=== PATIENT | female | born 1940 | race Caucasian/White ===

== ENCOUNTER → 2017-04-23 | Outpatient (CLI) | payer OTHER ==
[~2017-04-23] MED LIST: ALPR0.25 PO; ATOR20TA9 PO; LEVO25TA4 PO; OMEP20TA62 PO; TRAM50TA2 PO; [UNRECOGNIZED DRUG - REMARK]
== END | disposition home or self-care (01) ==
LOC: CFH 14:17 → EDSTATUS 14:45
PROVIDERS: ATTEND Family Medicine
DX: Z13.820 Encounter for screening for osteoporosis (principal); M81.0 Age-related osteoporosis without current pathological fracture
CPT/HCPCS: 77080

== ENCOUNTER 2017-07-21 20:18 | Emergency (ER) | payer OTHER ==
[~2017-07-21] VITALS: Ht 167.6 cm; Wt 61.3 kg
[2017-07-21 20:25] VITALS: BP 127/80
== END 2017-07-21 21:45 | disposition home or self-care (01) ==
LOC: ED 21:40
DX: M79.672 Pain in left foot (principal); K21.9 Gastro-esophageal reflux disease without esophagitis; J44.9 Chronic obstructive pulmonary disease, unspecified
CPT/HCPCS: 99284

== ENCOUNTER 2018-01-17 22:13 | Emergency (ER) | payer OTHER ==
[~2018-01-17] VITALS: Ht 167.6 cm; Wt 62.3 kg
[2018-01-17 22:18] VITALS: BP 143/82
[2018-01-17] MEDS ORDERED: THYROID MED PO (23:02)
[2018-01-17] MEDS ORDERED: PRILOSEC PO (23:02)
[2018-01-17] MEDS ORDERED: INHALER INH (23:02)
[2018-01-17] MEDS ORDERED: BP MED PO (23:02)
[2018-01-18] MEDS ORDERED: ACETAMINOPHEN 325 MG TABLET ONE (00:52)
[2018-01-18] MEDS ORDERED: ACETAMINOPHEN 325 MG TABLET PO ONE (01:00)
== END 2018-01-18 01:07 | disposition home or self-care (01) ==
LOC: ED 23:59
DX: S42.494A Other nondisplaced fracture of lower end of right humerus, initial encounter for closed fracture (principal); S81.001A Unspecified open wound, right knee, initial encounter; J44.9 Chronic obstructive pulmonary disease, unspecified; K21.9 Gastro-esophageal reflux disease without esophagitis; Z90.710 Acquired absence of both cervix and uterus; W18.30XA Fall on same level, unspecified, initial encounter; Y93.89 Activity, other specified; Y92.89 Other specified places as the place of occurrence of the external cause; Y99.8 Other external cause status
CPT/HCPCS: 29105; 99284

== ENCOUNTER 2018-07-25 05:51 | Emergency (ER) | payer OTHER ==
[~2018-07-25] VITALS: Ht 167.6 cm; Wt 61.1 kg
[~2018-07-25 05:51] MED LIST changes: +BP MED PO; +INHALER INH; +PRILOSEC PO; +THYROID MED PO
[2018-07-25 05:52] VITALS: BP 109/72
== END 2018-07-25 07:24 | disposition home or self-care (01) ==
LOC: ED 06:40
DX: J06.9 Acute upper respiratory infection, unspecified (principal); J44.9 Chronic obstructive pulmonary disease, unspecified; Z90.710 Acquired absence of both cervix and uterus
CPT/HCPCS: 71045; 99283

== ENCOUNTER 2019-01-28 14:11 | Inpatient (IN) | payer MEDICARE, OTHER ==
[~2019-01-28] VITALS: Ht 167.6 cm; Wt 60.9 kg
[~2019-01-28 14:11] MED LIST changes: +ATOR20TA37 PO; -ATOR20TA9 PO
[2019-01-28] MEDS ORDERED: ALBUTEROL/IPRATROPIUM 2.5MG/0.5MG, 3 ML NPPB SCH (14:30)
[2019-01-28 14:44] LABS: BASOPHILS # (AUTO) 0.03 x10^3/uL (0-0.1); BASOPHILS % (AUTO) 0 % (0-1); EOSINOPHILS # (AUTO) 0.11 x10^3/uL (0-0.4); EOSINOPHILS % (AUTO) 2 % (1-7); LYMPHOCYTES # (AUTO) 1.55 x10^3/uL (1-3.4); LYMPHOCYTES % (AUTO) 20 % (22-44); MD NO; MEAN CORPUSCULAR HEMOGLOBIN 29.3 pg (27.0-34.8); MEAN CORPUSCULAR HGB CONC 33.4 g/dL (32.4-35.8); MEAN CORPUSCULAR VOLUME 87.6 fL (80-100); MONOCYTES # (AUTO) 0.18 x10^3/uL (0.2-0.8); MONOCYTES % (AUTO) 2 % (2-9); NEUTROPHILS # (AUTO) 5.74 x10^3/uL (1.8-6.8); NEUTROPHILS % (AUTO) 76 % (42-75); PLATELET COUNT 475 x10^3/uL (130-400); RED BLOOD COUNT 5.17 x10^6/uL (3.82-5.3); RED CELL DISTRIBUTION WIDTH 13.9 % (9.6-15.2)
[2019-01-28 15:01] LABS: ALBUMIN 3.7 g/dL (3.4-5.0); ANION GAP 7 mmol/L (5-15); CALCIUM 9.2 mg/dL (8.5-10.1); CHLORIDE 107 mmol/L (98-107); CREATININE 1.19 mg/dL (0.55-1.02)
[2019-01-28 15:08] LABS: TROPONIN I < 0.015 ng/mL (0.000-0.045)
--- NOTE | 2019-01-28 18:50 | NUR ---
BREAK RN: PT PRESENTS TO ED FOR C/O WORSENING SOB X 1 WEEK. WAS PLACED ON PREDNISONE FOR 5 DAYS BY PCP. STATES LITTLE IMPROVEMENT. PT STATES AT HOME INHALER HAS DONE LITTLE TO HELP, TOO. PT WAS TOLD TO COME IN BY PCP FOR POSSIBLE IV STEROIDS. PT BREATHING SLIGHTLY LABORED WITH AN INCREASED. AUDIABLE WHEEZING NOTED. PT ON CONT. PULSE AND BP. PT SEEN IN PIT. RESULTS BACK. AWAITING FOR FURTHER EVAL AND ORDERS. WILL CONTINUE TO MONITOR.
--- NOTE | 2019-01-28 19:10 | NUR ---
BREAK RN: RT AT BEDSIDE.
--- NOTE | 2019-01-28 19:12 | NUR ---
REPORT TO NANCY NEWMAN.
[2019-01-28] MEDS ORDERED: PRED5TAB PO (21:13)
[2019-01-28] MEDS ORDERED: TIOT18CA INH (21:13)
[2019-01-28] MEDS ORDERED: OMEP-110 PO (21:13)
--- NOTE | 2019-01-28 21:38 | NUR ---
PIV PLACED FOR ADMISSION
--- NOTE | 2019-01-28 22:10 | NUR ---
REPORT TO BEENA CRUZ.
[2019-01-29] MEDS ORDERED: ALBUTEROL SULFATE 2.5 MG/3 ML NPPB PRN (00:30)
[2019-01-29 01:17] VITALS: BP_SYST 128; BP_SYST 160; BP_DIAS 75; BP_DIAS 88
[2019-01-29] MEDS ORDERED: POLYETHYLENE GLYCOL 17 GM PACKET PO PRN (01:30)
[2019-01-29] MEDS ORDERED: hydrALAzine 20 MG/ML, 1ML IVPush PRN (01:30)
[2019-01-29] MEDS: HEPARIN 5,000 UNITS/ML, 1ML SQ SCH ×2 (01:54→09:37)
[2019-01-29] MEDS: methylPREDNISolone SOD SUCC 40 MG/ML IVPush SCH ×3 (01:55→13:59)
[2019-01-29 02:23] LABS: BASOPHILS # (AUTO) 0.02 x10^3/uL (0-0.1); BASOPHILS % (AUTO) 0 % (0-1); EOSINOPHILS % (AUTO) 0 % (1-7); LYMPHOCYTES # (AUTO) 2.27 x10^3/uL (1-3.4); LYMPHOCYTES % (AUTO) 36 % (22-44); MD NO; MEAN CORPUSCULAR HEMOGLOBIN 29.5 pg (27.0-34.8); MEAN CORPUSCULAR HGB CONC 33.9 g/dL (32.4-35.8); MEAN CORPUSCULAR VOLUME 87.1 fL (80-100); MONOCYTES # (AUTO) 0.43 x10^3/uL (0.2-0.8); MONOCYTES % (AUTO) 7 % (2-9); NEUTROPHILS # (AUTO) 3.56 x10^3/uL (1.8-6.8); NEUTROPHILS % (AUTO) 57 % (42-75); PLATELET COUNT 423 x10^3/uL (130-400); RED BLOOD COUNT 4.55 x10^6/uL (3.82-5.3); RED CELL DISTRIBUTION WIDTH 13.8 % (9.6-15.2)
[2019-01-29 02:27] LABS: ANION GAP 8 mmol/L (5-15); CALCIUM 8.8 mg/dL (8.5-10.1); CHLORIDE 112 mmol/L (98-107); CREATININE 1.12 mg/dL (0.55-1.02)
[2019-01-29 07:52] VITALS: BP 130/78
[2019-01-29] MEDS ORDERED: AMLODIPINE 5 MG TABLET PO SCH (09:00)
[2019-01-29] MEDS ORDERED: OMEPRAZOLE 20 MG CAPSULE.DR PO SCH (09:00)
== END 2019-01-29 14:50 | disposition home or self-care (01) | DRG 189 ==
LOC: ED 20:58 → EDIP 21:19 → 4EST 22:32 → DCLOUNGE 01-29 14:34
PROVIDERS: ADMIT Family Medicine; ATTEND Family Medicine
DX: J96.00 Acute respiratory failure, unspecified whether with hypoxia or hypercapnia (principal); I10 Essential (primary) hypertension; J43.9 Emphysema, unspecified; K21.9 Gastro-esophageal reflux disease without esophagitis; Z85.528 Personal history of other malignant neoplasm of kidney; Z87.891 Personal history of nicotine dependence; Z90.5 Acquired absence of kidney; Z90.710 Acquired absence of both cervix and uterus
CPT/HCPCS: 36415; 71046; 80048; 82040; 83880; 84484; 85025; 93005; 94640; 99285; G0378; J1644; J2920

== ENCOUNTER → 2019-03-06 | Outpatient (CLI) | payer MEDICARE ==
[~2019-03-06] MED LIST changes: +OMEP-110 PO; +PRED5TAB PO; +TIOT18CA INH
== END | disposition home or self-care (01) ==
LOC: CFH 13:09
PROVIDERS: ATTEND Family Medicine
DX: Z12.2 Encounter for screening for malignant neoplasm of respiratory organs (principal); J44.9 Chronic obstructive pulmonary disease, unspecified; F41.9 Anxiety disorder, unspecified; Z87.891 Personal history of nicotine dependence
CPT/HCPCS: 94060; 94726; 94729; G0297

== ENCOUNTER 2019-05-12 16:16 | Inpatient (IN) | payer MEDICARE ==
[~2019-05-12] VITALS: Ht 157.5 cm; Wt 72.0 kg
[2019-05-12] MEDS ORDERED: MORPHINE SULFATE 4 MG/ML, 1ML ONE ×2 (16:24→17:05)
[2019-05-12] MEDS ORDERED: ONDANSETRON 2MG/ML, 2ML ONE ×2 (16:24→21:10)
[2019-05-12] MEDS: MORPHINE SULFATE 4 MG/ML, 1ML IVPush PRN ×2 (16:27→17:09)
[2019-05-12] MEDS ORDERED: SODIUM CHLORIDE FLUSH 10ML SYR IVF ONE ×2 (16:30→17:30)
[2019-05-12] MEDS ORDERED: ONDANSETRON 2MG/ML, 2ML IVPush ONE (16:30)
--- NOTE | 2019-05-12 16:30 | NUR ---
PT HAD MGLF IN [facility] TODAY. SHE STATES SHE LANDED MOSTLY ON HER L HIP AREA, SHE STATES SHE HAD PRIOR PINNING DONE ON THAT SIDE ABOUT 5 YRS AGO, SHE STATES SHE FEELS SHE LANDED ON HER PINS. PT TO GO TO XR. PT MEDICATED PER MAR
--- NOTE | 2019-05-12 16:35 | NUR ---
PATIENT TO X-RAY
--- NOTE | 2019-05-12 17:20 | NUR ---
[facility] CALLED FOR PATIENT. PATIENT REQUESTED THAT [facility] BE CALLED TO INFORM OF CONDITION. MESSAGE LEFT FOR NIKOLAY FERNANDEZ AT [phone] AT [facility] IN [facility]. MARJERRY CURRENTLY HAS 18 YEAR OLD GRANDSON LIVING WITH HER
[2019-05-12] MEDS ORDERED: HYDROmorphone 2 MG/ML, 1ML IVPush PRN ×4 (17:30→21:30)
[2019-05-12 17:43] LABS: BASOPHILS # (AUTO) 0.02 x10^3/uL (0-0.1); BASOPHILS % (AUTO) 0 % (0-1); EOSINOPHILS # (AUTO) 0.08 x10^3/uL (0-0.4); EOSINOPHILS % (AUTO) 1 % (1-7); LYMPHOCYTES # (AUTO) 1.55 x10^3/uL (1-3.4); LYMPHOCYTES % (AUTO) 26 % (22-44); MD NO; MEAN CORPUSCULAR HEMOGLOBIN 29.8 pg (27.0-34.8); MEAN CORPUSCULAR HGB CONC 32.5 g/dL (32.4-35.8); MEAN CORPUSCULAR VOLUME 91.7 fL (80-100); MEAN PLATELET VOLUME 7.2 fL (7.4-10.4); MONOCYTES # (AUTO) 0.33 x10^3/uL (0.2-0.8); MONOCYTES % (AUTO) 6 % (2-9); NEUTROPHILS # (AUTO) 3.96 x10^3/uL (1.8-6.8); NEUTROPHILS % (AUTO) 67 % (42-75); PLATELET COUNT 314 x10^3/uL (130-400); RED BLOOD COUNT 4.31 x10^6/uL (3.82-5.3)
[2019-05-12] MEDS ORDERED: HYDROmorphone 1 MG/ML, 1ML VIAL ONE (17:44)
[2019-05-12 17:46] LABS: ALBUMIN 3.3 g/dL (3.4-5.0); ANION GAP 8 mmol/L (5-15); CALCIUM 8.9 mg/dL (8.5-10.1); CHLORIDE 112 mmol/L (98-107); CREATININE 1.01 mg/dL (0.55-1.02)
--- NOTE | 2019-05-12 18:18 | NUR ---
PT MEDICATED PER MAR FOR PAIN. AWAITING SURGURY TIME. REPORT TO STAFF INTERPRETER.
[2019-05-12] MEDS ORDERED: ONDANSETRON 2MG/ML, 2ML IVPush PRN ×2 (18:30→23:00)
--- NOTE | 2019-05-12 18:49 | NUR ---
REPORT GIVEN TO ORLY CRUZ
[2019-05-12] MEDS ORDERED: LABETALOL 5MG/ML, 20ML IV PRN ×2 (19:30→21:30)
[2019-05-12] MEDS ORDERED: ONDANSETRON 2MG/ML, 2ML IV PRN (19:30)
[2019-05-12] MEDS ORDERED: MORPHINE SULFATE 4 MG/ML, 1ML IVPush PRN (19:30)
[2019-05-12] MEDS ORDERED: ALBUTEROL/IPRATROPIUM 2.5MG/0.5MG, 3 ML NPPB PRN (19:30)
[2019-05-12] MEDS ORDERED: SODIUM CHLORIDE FLUSH 10ML SYR IVF PRN (19:30)
[2019-05-12] MEDS ORDERED: PROMETHAZINE 25 MG/ML, 1ML IV PRN ×2 (19:30→21:30)
[2019-05-12] MEDS ORDERED: hydrALAzine 20 MG/ML, 1ML IV PRN ×2 (19:30→21:30)
[2019-05-12] MEDS ORDERED: ACETAMINOPHEN 325 MG TABLET PO PRN (19:30)
[2019-05-12] MEDS ORDERED: ALBUTEROL SULFATE 2.5 MG/3 ML NPPB PRN ×2 (19:30→21:30)
[2019-05-12] MEDS ORDERED: FENTANYL PF 250 MCG/5ML ONE (20:16)
[2019-05-12] MEDS ORDERED: DEXAMETHASONE 4 MG/ML, 1ML ONE (21:10)
[2019-05-12] MEDS ORDERED: SUCCINYLCHOLINE 20 MG/ML, 10ML ONE (21:10)
[2019-05-12] MEDS ORDERED: NEOSTIGMINE 1 MG/ML, 10ML ONE (21:10)
[2019-05-12] MEDS ORDERED: GLYCOPYRROLATE 0.2MG/1ML, 5ML ONE (21:10)
[2019-05-12] MEDS ORDERED: ROCURONIUM 10MG/ML,5ML ONE (21:10)
[2019-05-12] MEDS ORDERED: CEFAZOLIN 1,000 MG ONE (21:10)
[2019-05-12] MEDS ORDERED: PROPOFOL 10 MG/ML, 20ML ONE (21:10)
[2019-05-12] MEDS ORDERED: FENTANYL PF 100 MCG/2ML ONE (21:20)
[2019-05-12] MEDS ORDERED: OXYcodone 5 MG/5 ML ORAL.SOL UDC ONE ×2 (21:20→21:29)
[2019-05-12] MEDS: FENTANYL PF 100 MCG/2ML IV PRN ×3 (21:21→21:50)
[2019-05-12] MEDS: OXYcodone 5 MG/5 ML ORAL.SOL UDC PO PRN ×2 (21:25→21:35)
[2019-05-12] MEDS ORDERED: HALOPERIDOL 5 MG/ML IV PRN (21:30)
[2019-05-12] MEDS ORDERED: OXYcodone 5 MG/5 ML ORAL.SOL UDC PO PRN (21:30)
[2019-05-12] MEDS ORDERED: FENTANYL PF 100 MCG/2ML IV PRN (21:30)
[2019-05-12] MEDS ORDERED: PROMETHAZINE 25 MG/ML, 1ML ONE (21:58)
[2019-05-12 23:57] VITALS: BP 122/66
[2019-05-13] MEDS: GUAIFENESIN ER 600 MG TABLET PO SCH ×4 (00:39→21:23)
[2019-05-13] MEDS: ACETAMINOPHEN 325 MG TABLET PO SCH ×3 (00:40→16:59)
[2019-05-13] MEDS: KETOROLAC 30 MG/1 ML IVPush SCH ×3 (00:40→16:59)
[2019-05-13 03:08] VITALS: BP 96/65
[2019-05-13] MEDS ORDERED: ALBUTEROL SULFATE 2.5 MG/3 ML NPPB PRN (03:30)
[2019-05-13] MEDS: CEFAZOLIN PMX 1GM/50ML 50 ML IV SCH ×3 (04:44→21:26)
[2019-05-13 07:44] VITALS: BP 99/53
[2019-05-13] MEDS: DOCUSATE 100 MG CAPSULE PO SCH ×2 (08:53→21:23)
[2019-05-13] MEDS: ENOXAPARIN 40 MG/0.4 ML SQ SCH (08:53)
[2019-05-13 13:27] VITALS: BP 83/49
[2019-05-13] MEDS: PANTOPROZOLE 40MG TABLET PO SCH (13:32)
[2019-05-13 13:44] VITALS: BP 98/64
[2019-05-13 18:34] VITALS: BP 110/63
[2019-05-14] MEDS: ACETAMINOPHEN 325 MG TABLET PO SCH ×3 (00:39→16:11)
[2019-05-14 00:40] VITALS: BP 110/53
[2019-05-14 06:20] VITALS: BP 123/77
[2019-05-14] MEDS ORDERED: MORPHINE SULFATE 4 MG/ML, 1ML IVPush PRN (07:00)
[2019-05-14] MEDS: PANTOPROZOLE 40MG TABLET PO SCH (10:09)
[2019-05-14] MEDS: DOCUSATE 100 MG CAPSULE PO SCH ×2 (10:09→20:07)
[2019-05-14] MEDS: ENOXAPARIN 40 MG/0.4 ML SQ SCH (10:09)
[2019-05-14] MEDS: GUAIFENESIN ER 600 MG TABLET PO SCH ×2 (10:09→20:07)
[2019-05-14] MEDS: HYDROcodone/APAP 5/325 TABLET PO PRN ×2 (10:38→20:07)
[2019-05-14 13:19] VITALS: BP 102/60
[2019-05-14] MEDS: DIAZEPAM 5 MG TABLET PO PRN (16:11)
[2019-05-14 19:59] VITALS: BP 117/73
[2019-05-14] MEDS ORDERED: OXYcodone/APAP 5/325MG TABLET PO PRN (23:30)
[2019-05-15] MEDS: ACETAMINOPHEN 325 MG TABLET PO SCH ×3 (00:30→16:13)
[2019-05-15] MEDS: DIAZEPAM 5 MG TABLET PO PRN ×2 (00:35→09:05)
[2019-05-15 00:55] LABS: MICROSCOPIC NOT IND
[2019-05-15 00:57] LABS: CULTURE INDICATED? NO
[2019-05-15 03:57] VITALS: BP 139/72
[2019-05-15] MEDS: HYDROcodone/APAP 5/325 TABLET PO PRN (04:05)
[2019-05-15 05:14] LABS: ANION GAP 4 mmol/L (5-15); CALCIUM 8.3 mg/dL (8.5-10.1); CHLORIDE 112 mmol/L (98-107); CREATININE 0.85 mg/dL (0.55-1.02)
[2019-05-15 06:17] LABS: MEAN CORPUSCULAR HEMOGLOBIN 29.9 pg (27.0-34.8); MEAN CORPUSCULAR HGB CONC 33.3 g/dL (32.4-35.8); MEAN CORPUSCULAR VOLUME 89.8 fL (80-100); PLATELET COUNT 236 x10^3/uL (130-400); RED BLOOD COUNT 2.93 x10^6/uL (3.82-5.3); RED CELL DISTRIBUTION WIDTH 13.7 % (9.6-15.2)
[2019-05-15 06:38] LABS: BASOPHILS # (AUTO) 0.03 x10^3/uL (0-0.1); BASOPHILS % (AUTO) 1 % (0-1); EOSINOPHILS % (AUTO) 2 % (1-7); LYMPHOCYTES # (AUTO) 1.27 x10^3/uL (1-3.4); LYMPHOCYTES % (AUTO) 29 % (22-44); MD SCAN; MONOCYTES # (AUTO) 0.52 x10^3/uL (0.2-0.8); MONOCYTES % (AUTO) 12 % (2-9); NEUTROPHILS # (AUTO) 2.44 x10^3/uL (1.8-6.8); NEUTROPHILS % (AUTO) 56 % (42-75)
[2019-05-15 07:23] VITALS: BP 134/68
[2019-05-15] MEDS: GUAIFENESIN ER 600 MG TABLET PO SCH (09:05)
[2019-05-15] MEDS: PANTOPROZOLE 40MG TABLET PO SCH (09:05)
[2019-05-15] MEDS: ENOXAPARIN 40 MG/0.4 ML SQ SCH (09:06)
[2019-05-15] MEDS: DOCUSATE 100 MG CAPSULE PO SCH (09:06)
[2019-05-15] MEDS ORDERED: ALBUTEROL 4 MG TABLET PO SCH (15:30)
[2019-05-15 15:37] VITALS: BP 116/68
[2019-05-15] MEDS ORDERED: [UNRECOGNIZED DRUG - CODE] PO (15:50)
[2019-05-15] MEDS ORDERED: BUSP5TAB2 PO (15:56)
[2019-05-15] MEDS ORDERED: ALBU8.5H8 PO (15:56)
[2019-05-15] MEDS ORDERED: ALPR0.5T PO (15:56)
[2019-05-15] MEDS ORDERED: OXYC1TAB7 PO (16:46)
[2019-05-15] MEDS ORDERED: DIAZ5TAB4 PO (16:46)
[2019-05-15] MEDS ORDERED: SENN-177 PO (16:48)
[2019-05-15] MEDS ORDERED: ENOX40SY4 SQ (16:53)
[2019-05-15] MEDS ORDERED: BUSPIRONE 5 MG TABLET PO SCH (21:00)
== END 2019-05-15 18:05 | DRG 481 ==
LOC: OR 18:54 → EDIP 19:15 → 4NOR 22:35
PROVIDERS: ADMIT Internal Medicine; ATTEND Internal Medicine
PROC: 0QP704Z Removal of Internal Fixation Device from Left Upper Femur, Open Approach (ICD-10-PCS; 2019-05-12)
PROC: 0QS736Z Reposition Left Upper Femur with Intramedullary Internal Fixation Device, Percutaneous Approach (ICD-10-PCS; principal; 2019-05-12 20:30)
DX: S72.142A Displaced intertrochanteric fracture of left femur, initial encounter for closed fracture (principal); J96.10 Chronic respiratory failure, unspecified whether with hypoxia or hypercapnia; J98.11 Atelectasis; E03.9 Hypothyroidism, unspecified; E78.5 Hyperlipidemia, unspecified; F41.9 Anxiety disorder, unspecified; I10 Essential (primary) hypertension; J43.9 Emphysema, unspecified; K21.9 Gastro-esophageal reflux disease without esophagitis; S72.22XA Displaced subtrochanteric fracture of left femur, initial encounter for closed fracture; W10.1XXA Fall (on)(from) sidewalk curb, initial encounter; Y92.512 Supermarket, store or market as the place of occurrence of the external cause; Y93.89 Activity, other specified; Z90.5 Acquired absence of kidney; Z87.891 Personal history of nicotine dependence; Z85.528 Personal history of other malignant neoplasm of kidney; Z90.710 Acquired absence of both cervix and uterus; Z88.0 Allergy status to penicillin; Z88.2 Allergy status to sulfonamides
CPT/HCPCS: 36415; 71045; 72170; 76000; 80048; 81003; 82040; 83735; 85025; 93005; 94640; 96374; 96375; 96376; C1713; G0378; J0690; J1100; J1170; J1650; J1885; J2405; J2550; J2704; J2710; J3010; J7613; J0330; J2270

== ENCOUNTER 2020-01-05 13:16 | Emergency (ER) | payer MEDICARE ==
[~2020-01-05] VITALS: Ht 167.6 cm; Wt 65.1 kg
[~2020-01-05 13:16] MED LIST changes: +ALBU8.5H8 PO; +ALPR0.5T PO; +BUSP5TAB2 PO; +DIAZ5TAB4 PO; +ENOX40SY4 SQ; +OXYC1TAB7 PO; +SENN-177 PO; +[UNRECOGNIZED DRUG - CODE] PO
[2020-01-05 13:23] VITALS: BP 169/89
[2020-01-05] MEDS ORDERED: NEOSPORIN OINT. PKT 1 PACKET ONE (13:58)
[2020-01-05] MEDS ORDERED: DIPH,PERTUSS(ACELL),TET VAC/PF 0.5 ML IM-VACC ONE ×2 (14:00→14:02)
--- NOTE | 2020-01-05 14:39 | NUR ---
TASK RN: RN TO ROOM TO DC PT. PT NO LONGER IN ROOM. NO BELONGINGS IN ROOM. PT ASSUMED TO HAVE LEFT. CONFIRMED WITH REGISTRATION WHO STATE THAT "PATIENT LEFT A LONG TIME AGO". DC INSTRUCTIONS AT CHARGE DESK IN CASE OF PT RETURN
--- NOTE | 2020-01-05 14:41 | NUR ---
TASK RN: ATTEMPTED TO CONTACT PT VIA PHONE NUMBER ON FILE IN REGARD TO [facility] BEING HELD AT CHARGE DESK. NO ANSWER.
== END 2020-01-05 14:43 | disposition home or self-care (01) ==
LOC: ED 14:23
DX: S80.11XA Contusion of right lower leg, initial encounter (principal); J44.9 Chronic obstructive pulmonary disease, unspecified; I10 Essential (primary) hypertension; Z85.528 Personal history of other malignant neoplasm of kidney; Z86.39 Personal history of other endocrine, nutritional and metabolic disease; W22.8XXA Striking against or struck by other objects, initial encounter; Y93.89 Activity, other specified; Y92.009 Unspecified place in unspecified non-institutional (private) residence as the place of occurrence of the external cause; Y99.8 Other external cause status
CPT/HCPCS: 90471; 90715; 99283

== ENCOUNTER → 2020-03-22 | Outpatient (CLI) | payer MEDICARE | END | disposition home or self-care (01) | LOC: CFH 13:28 | PROVIDERS: ATTEND Family Medicine | DX: Z12.2 Encounter for screening for malignant neoplasm of respiratory organs (principal); Z87.891 Personal history of nicotine dependence | CPT/HCPCS: G0297 ==

== ENCOUNTER 2020-06-17 10:06 | Outpatient (CLI) | payer MEDICARE ==
[~2020-06-17 10:06] MED LIST changes: +GADOTERATE 7.5 MMOL/15 ML SYR ONE
[2020-06-17] MEDS ORDERED: MIDAZOLAM 1 MG/ML, 5ML ONE ×2 (11:06)
[2020-06-17] MEDS ORDERED: FENTANYL PF 100 MCG/2ML ONE ×2 (11:06)
== END 2020-06-17 23:59 | disposition home or self-care (01) ==
LOC: RAD 10:06 → EDSTATUS 11:00 → RAD 23:59
PROVIDERS: ATTEND Psychiatry & Neurology Neurology
DX: G45.3 Amaurosis fugax (principal); G43.809 Other migraine, not intractable, without status migrainosus; G31.9 Degenerative disease of nervous system, unspecified; J44.9 Chronic obstructive pulmonary disease, unspecified; I10 Essential (primary) hypertension; Z99.81 Dependence on supplemental oxygen
CPT/HCPCS: 70544; 70549; 70553; 99156; 99157; A9575; J2250; J3010

== ENCOUNTER → 2020-09-13 | Outpatient (CLI) | payer MEDICARE ==
[~2020-09-13] MED LIST changes: +ALBU6.7H8 INH; +ALPR0.5T7 PO; +AMLO2.5T5 PO; +ASPI81TA45 PO; +DOCU-131 PO; +FLUT1BLS3 IH; -GADOTERATE 7.5 MMOL/15 ML SYR ONE; +HYDR-3237 PO; +HYDR-3240 PO; +LIDO700A20 TD; +Senna/Docusate PO; +calcium PO; +vitamin D PO
== END | disposition home or self-care (01) ==
LOC: RAD 10:53
PROVIDERS: ATTEND Orthopaedic Surgery
DX: S72.141D Displaced intertrochanteric fracture of right femur, subsequent encounter for closed fracture with routine healing (principal); R22.41 Localized swelling, mass and lump, right lower limb; X58.XXXD Exposure to other specified factors, subsequent encounter

== ENCOUNTER 2020-10-21 15:58 | Outpatient (CLI) | payer MEDICARE | END 2020-10-21 23:59 | disposition home or self-care (01) | LOC: RAD 15:58 | PROVIDERS: ATTEND Physician Assistant Surgical | DX: Z02.9 Encounter for administrative examinations, unspecified (principal) ==

== ENCOUNTER → 2020-10-21 | Outpatient (CLI) | payer MEDICARE | END | disposition home or self-care (01) | LOC: CVU 14:27 | PROVIDERS: ATTEND Internal Medicine Cardiovascular Disease | DX: I65.23 Occlusion and stenosis of bilateral carotid arteries (principal); I48.91 Unspecified atrial fibrillation; I67.9 Cerebrovascular disease, unspecified | CPT/HCPCS: 93880 ==

== ENCOUNTER → 2020-10-28 | Outpatient (CLI) | payer MEDICARE | END | disposition home or self-care (01) | LOC: RAD 13:43 | PROVIDERS: ATTEND Physician Assistant Surgical | DX: S22.060A Wedge compression fracture of T7-T8 vertebra, initial encounter for closed fracture (principal); M51.27 Other intervertebral disc displacement, lumbosacral region; M51.25 Other intervertebral disc displacement, thoracolumbar region; M48.07 Spinal stenosis, lumbosacral region; K44.9 Diaphragmatic hernia without obstruction or gangrene; M51.34 Other intervertebral disc degeneration, thoracic region; M43.8X4 Other specified deforming dorsopathies, thoracic region; X58.XXXA Exposure to other specified factors, initial encounter; Y93.89 Activity, other specified; Y92.89 Other specified places as the place of occurrence of the external cause; Y99.8 Other external cause status | CPT/HCPCS: 72146; 72148 ==

== ENCOUNTER 2021-02-16 15:23 | Emergency (ER) | payer MEDICARE ==
[~2021-02-16] VITALS: Ht 170.2 cm; Wt 69.2 kg
[~2021-02-16 15:23] MED LIST changes: +HYDR-2214 PO; -HYDR-3240 PO
--- NOTE | 2021-02-16 16:00 | NUR ---
marvinm care of pt. pt here c/o r rib pain and R thumb pain after a fall at home yesterday. pt reports that she tripped carlos some rock while planting in her garden yesterday and fell. pt states tht she hit her head but denies LOC. pt is A&O x4. no loss or change of vision. pt reports that she hit her R thumb and her R rib/back area. no bruising, no obvious injury, no SOB. pt is ambualtory with her walker. no resp. distress. resting on gurney in posiiton of comfort. no family at bedside
--- NOTE | 2021-02-16 16:31 | NUR ---
pt to RAD
[2021-02-16 17:00] VITALS: BP 135/71
--- NOTE | 2021-02-16 17:18 | NUR ---
pt resting. awaiting test results
--- NOTE | 2021-02-16 18:02 | NUR ---
Reviewed poc Provided with Incentive spirometer and taught how to use Educated on sxs to watch for
--- NOTE | 2021-02-16 18:24 | NUR ---
this pt was D/C by another RN
== END 2021-02-16 18:16 | disposition home or self-care (01) ==
LOC: ED 16:20
DX: S00.93XA Contusion of unspecified part of head, initial encounter (principal); S20.211A Contusion of right front wall of thorax, initial encounter; S60.221A Contusion of right hand, initial encounter; Z87.891 Personal history of nicotine dependence; W18.30XA Fall on same level, unspecified, initial encounter; Y93.89 Activity, other specified; Y92.009 Unspecified place in unspecified non-institutional (private) residence as the place of occurrence of the external cause; Y99.8 Other external cause status
CPT/HCPCS: 70450; 99284